=== PATIENT | female | born 1975 | race Caucasian/White ===

== ENCOUNTER 2025-03-25 17:09 | Emergency (ER) | payer BC, SELFPAY ==
[2025-03-25 17:15] VITALS: BP 124/91
[2025-03-25 17:40] LABS: Hematocrit 39.3 % (37.0-47.0); Hemoglobin 13.7 g/dL (12.0-16.0); Mean Corp Hgb Conc. 34.9 g/dL (33.0-37.0); Mean Corpuscular Volume 84.5 fL (81.0-99.0); Nucleated Red Blood Cells % 0 %; Platelet Count 317 10^3/uL (130-400); Red Cell Dist. Width 14.1 % (11.5-14.5)
[2025-03-25 17:51] LABS: ALT (SGPT) 10 U/L (0-35); AST (SGOT) 18 U/L (14-36); Albumin 4.7 g/dl (3.5-5.0); Alkaline Phosphatase 45 U/L (38-126); Blood Urea Nitrogen 10 mg/dl (7-17); Calcium 9.7 mg/dl (8.4-10.2); Carbon Dioxide 18 mmol/L (22-30); Chloride 107 mmol/L (98-107); Glucose 91 mg/dl (70-99); Potassium 4.2 mmol/L (3.5-5.1); Sodium 135 mmol/L (135-145); Total Protein 7.5 g/dl (6.3-8.2); eGFR > 60.00
[2025-03-25 18:02] LABS: Troponin I < 0.012 ng/ml
[2025-03-25 21:31] VITALS: BMI 24.2
[2025-03-25 22:04] LABS: D-Dimer 1.08 ug/mlFEU (0.00-0.50)
[2025-03-25 22:12] VITALS: BP 109/64
[2025-03-25 22:16] LABS: Troponin I < 0.012 ng/ml
[2025-03-25 22:45] LABS: HCG, Serum Qualitative Screen Negative
[2025-03-25 23:00] VITALS: BP 112/79
--- NOTE | 2025-03-25 23:39 | ED.GENMED ---
History of Present Illness
General
Chief Complaint: Chest Pain
Source: patient
Exam Limitations: none
Time Seen by Provider: 03/25/25 20:57
Nursing documentation reviewed up to this point in time: agreed with
History of Present Illness
History of Present Illness:
Patient is a 49-year-old female who presents to the emergency department with concerns of chest discomfort which occurred earlier today. 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 She
describes it as feeling as if something is stuck in her chest. During this time that she also reports feeling as if she was having difficulty taking a deep breath although did not feel necessarily short of breath. She denies any radiation of pain
into her back, shoulder, or jaw. She denies any clear exertional component.
Patient denies any recent fever, chills, or productive cough. She denies any recent falls or trauma.
Patient does report feeling very stressed out with her current job and is wondering if she may have been experiencing panic attack today. She denies any SI or HI. She does have good contact with a psychiatry [facility] who prescribes her medications.
Patient did recently travel back from [place] via car a few weeks ago. She takes an OCP.
Past History
Past History
ED Past Medical History: Asthma, Psychiatric (Anxiety, depression) and Other (Irritable bowel syndrome)
ED Past Surgical History: Tonsilectomy
Social History
Personal:
Living: with family
Employment: Employed
Review of Systems
Review of Systems
Allergies reviewed?: Yes
All Other Systems: ROS reviewed and negative except as documented in HPI and ROS
Phy Exam
Physical Exam
Physical Exam:
Vitals: Patient's vital signs are stable. Afebrile
General: Patient is well appearing, no acute distress. Nontoxic appearing
Skin: Warm and dry, no rashes or lesions
Head: Normocephalic, atraumatic
Eyes: Sclera nonicteric.
Throat: Protecting airway
Neck: Normal ROM, no cervical spine tenderness, no meningismus
Cardiac: Regular rate and rhythm, no murmurs. No reproducible chest wall tenderness. 2+ palpable radial pulses bilaterally.
Pulm: Normal respiratory effort, no wheezes, rales, rhonchi heard on exam
Abdomen: No abdominal tenderness.
Extremities: No evidence of cyanosis or edema. Negative Homans' sign bilaterally.
Neuro: AAOx3. Grossly intact.
Psychiatric: Normal affect.
Scores
Heart Score for Chest Pain Patients
STEMI patient?: Not applicable
Course
Orders/Labs/Results
Orders:
Orders
03/25/25 17:10
Electrocardiogram (*1) Urgent
Reason for Study: Chest Pain
EKG- Treatment ONCE
03/25/25 17:20
CR Chest - 2 Views Urgent
Comment:
Reason For Exam: chest pain
03/25/25 17:24
Complete Blood Count/With Diff Urgent
Comprehensive Metabolic Panel Urgent
HCG, Serum Qualitative Screen Urgent
Comment: ADD ON
Troponin I Urgent
03/25/25 21:28
Electrocardiogram (*1) Urgent
Reason for Study: Chest Pain
EKG- Treatment ONCE
03/25/25 21:32
D-Dimer Urgent
Troponin I Urgent
03/25/25 22:13
Add On- LAB Urgent
Tests Added?: serum hcg
03/25/25 22:44
CT Chest PE Study Urgent
Comment:
Reason For Exam: CP, elevated dimer
Abnormal Lab Results
03/25/25 03/25/25
17:24 21:32
D-Dimer 1.08 H ug/mlFEU
(0.00-0.50)
Carbon Dioxide 18 L mmol/L
(22-30)
03/25/25 17:24
03/25/25 17:24
Vital Signs
Initial and Last Documented VS:
Initial Vital Signs
Temp Pulse Resp BP Pulse Ox
98.1 F 81 18 124/91 99
03/25/25 17:15 03/25/25 17:15 03/25/25 17:15 03/25/25 17:15 03/25/25 17:15
Last Documented Vital Signs
Temp Pulse Resp BP Pulse Ox
98.1 F 61 17 113/70 99
03/25/25 17:15 03/26/25 01:00 03/25/25 23:00 03/26/25 01:00 03/26/25 01:00
MDM/Problems Addressed
Differential Diagnosis Includes:
Not limited to: Panic attack, GERD, pericarditis, myocarditis, pulmonary embolism, acute coronary syndrome, etc.
MDM/Problems Addressed:
49-year-old female presenting with non-exertional chest tightness which occurred earlier today. Symptoms associated with difficulty taking a deep breath, however no pleuritic discomfort or true shortness of breath. She does report feeling anxious
and overwhelmed at her job during onset of symptoms. No fevers, productive cough, other infectious symptoms. Vitals and physical exam as above. Patient well appearing, in no apparent distress. She has no reproducible chest tenderness and clear
lungs. No clinical evidence of DVT on exam.
Differential broad. Labs were obtained prior to my evaluation without any clinically significant abnormalities. Initial EKG shows normal sinus rhythm without ischemic changes and an undetectable troponin.
Low suspicion for acute coronary syndrome however, will trend troponis/EKG. While I would consider patient low risk for pulmonary embolism � given OCP use and history of recent travel � will check D-dimer.
Symptoms someone consistent with anxiety/panic attack however will rule out acute life-threatening cardio/pulmonary emergencies
Update: EKG remains non ischemic with repeat troponin undetectable. Patients symptoms are resolved. Unfortunately, d-dimer was elevated. Will proceed with CTA chest to rule out pulmonary embolism.
Update: CT chest without acute fidnings. Lung nodule noted and discussed with patient. Patient has remained with normal vital signs in the emergency department. Her symptoms have resolved. Very low suspicion for acute coronary syndrome given
nonischemic EKG and negatives troponins x 2. Symptoms possibly secondary to anxiety/panic attack. She does have director of psychiatry/primary care follow up scheduled. Very strict retunr precautions discussed.
Chronic conditions affecting care:
Anxiety
Acute Exacerbation and/or Progression of Chronic Illness:
N/A
*Radiology
Radiology exam reviewed: preliminary read by ED provider (Chest x-ray reviewed by me-no acute abnormalities) and radiology read reviewed
*Pulse Oximetry
SaO2: 99
Oxygen Mode of Delivery: Room air
Patient hypoxic: no
*EKG
Interpreted by ED Provider?: Yes
EKG Intrepretation Date: 03/25/25
Interpretation: normal
Comparison EKG: no comparison EKG present
Heart Rate: 73
Rate: normal
Rhythm: sinus
Spring: normal axis
Interval: normal QT interval
QRS Pattern: normal QRS
Ischemia: no ischemia
*Silica Mixer Operator Interpretation
Rate: normal
Interpretation: normal
Heart Rate: 80
Rhythm: sinus
*Critical Care Note
Total Time (30-74mins, 75-104mins- exclusive of procedures): Not Applicable
ED Attending Note
-
Portions of this chart may have been created with voice recognition software.� Occasional wrong word or��sound alike� substitutions may have occurred due to the inherent limitations of voice recognition software.
Discharge Plan
Departure
Patient Disposition: Home (Routine Discharge)
Date of Disposition: 03/26/25
Time of Disposition: 00:48
Patient with high blood pressure during this ER visit?: No
Condition: Good
Discharge Problem:
Chest pain
Instructions: Chest pain, Anxiety in adults - ED discharge instructions
Prescriptions:
No Action
cetirizine 10 MG tablet
10 mg PO HS
buspirone 10 MG tablet
15 mg PO HS
montelukast 10 MG tablet
10 mg PO HS
albuterol sulfate 18 GM HFA aerosol inhaler
2 puff IH Q4 PRN (Reason: sob)
lamotrigine 100 MG tablet
100 mg PO HS
Lo Loestrin Fe 1 EACH tablet
1 ea PO DAILY
desvenlafaxine 50 MG tablet extended release 24hr
100 mg PO DAILY
rosuvastatin 5 MG tablet
5 mg PO QPM
buspirone 15 mg Tablet
30 mg PO AMHS
fexofenadine [Cari] 180 mg Tablet
180 mg PO DAILY
Referrals:
TOMMY SULTANA [Other]
Activity Restrictions/Additional Instructions:
RETURN TO THE EMERGENCY DEPARTMENT ANY CHEST PAIN, SHORTNESS OF BREATH/DIFFICULTY BREATHING, FEVERS, DIZZINESS, LIGHTHEADEDNESS, THOUGHTS OF HARMING YOURSELF OR OTHERS, OR ANY CONCERNS
- As discussed�your lab work and cardiac enzymes were normal in the emergency department. Your CT scan of your chest showed no evidence of pulmonary embolism. There was a small nodule noted in your right middle lobe of your lung. Please this
followed up with your primary care to determine if further imaging is required.
- Continue to take your medications as prescribed. Stay well-hydrated.
- Follow-up with PCP and psychiatry for further evaluation/management
Monitor your symptoms closely and return to the emergency department with any acute worsening/new symptoms or any other concerns
Interventions
Interventions:
*Risk Screen - Suicide Last Done: 03/25/25 17:17
*General Assessment Last Done: 03/25/25 17:17
*Neglect/Abuse Screening Last Done: 03/25/25 17:17
*ED- Fall Risk Assessment Last Done: 03/25/25 20:50
*ED COVID-19 Vaccine History Last Done: 03/25/25 17:17
*Nursing Disposition Last Done: 03/26/25 01:23
ED- Cardiac Assessment Last Done: 03/25/25 23:00
Discharge Date and Time
Discharge Date/Time: 03/26/25 01:29
Print Language: SLOVENIAN
[2025-03-26 00:06] VITALS: BP 111/76
[2025-03-26 01:00] VITALS: BP 113/70
== END 2025-03-26 01:29 | disposition home or self-care (01) ==
LOC: EMR 17:09
PROVIDERS: Emergency Medicine; Physician Assistant; EMERGENCY PHYSICIAN Emergency Medicine; FAMILY PHYSICIAN Nurse Practitioner Family
DX: R07.9 Chest pain, unspecified (principal); R91.1 Solitary pulmonary nodule; J45.909 Unspecified asthma, uncomplicated; F41.9 Anxiety disorder, unspecified; F32.A Depression, unspecified; K58.9 Irritable bowel syndrome, unspecified
CPT/HCPCS: 99284; 71046; 71275; 80053; 84484; 84703; 85025; 85379; 93005; Q9967